=== PATIENT | female | born 1950 | race Caucasian/White ===

== ENCOUNTER 2017-01-10 07:15 | Day surgery (SDC) | payer MEDICARE, BC ==
[2017-01-10] MEDS ORDERED: fentaNYL 100 MCG/2 ML SDV ONE (07:20)
[2017-01-10] MEDS ORDERED: Midazolam 1 MG/ML 2 ML SDV ONE (07:20)
[2017-01-10] MEDS ORDERED: Propofol 200 MG/20 ML SDV ONE (07:20)
[2017-01-10] MEDS ORDERED: Dextrose 5%-Lactated Ringers 1,000 ML IV SCH (08:15)
[2017-01-10] MEDS ORDERED: Glycopyrrolate 0.2 MG/ML 2 ML SDV IVPUSH ONE (08:30)
[2017-01-10 11:20] VITALS: BP 137/89
--- NOTE | 2017-01-16 14:54 | OR ---
DATE OF PROCEDURE: 01/10/2017 PREOPERATIVE DIAGNOSIS: History of multiple gastric polyps. POSTOPERATIVE DIAGNOSES: 1. Persistent multiple gastric polyps. 2. Mild antral gastritis and duodenitis. OPERATIVE PROCEDURES: Esophagogastroduodenoscopy with: 1. Biopsies of antrum for CLOtest (14564). 2. Gastric polypectomy by snare technique (80286). ANESTHESIA: IV sedation. INDICATION FOR PROCEDURE: This 66-year-old was noted to previously have a multitude of gastric polyps. These had been found to be benign previously and likely related to long- term proton pump inhibitor use. Presently, she is trying to minimize the use of proton pump inhibitors and is using more [id number] type medications, such as oral antacids. The plan is to proceed with upper GI endoscopy with biopsies and/or polypectomies as indicated. Potential risks including bleeding and perforation were discussed, and the patient wishes to proceed. DETAILS OF PROCEDURE: The patient was taken to the operating room and placed in a left lateral decubitus position. IV sedation was administered, after which the upper GI endoscope was passed orally through the length of the esophagus and into the stomach with retroflexion view of the fundus, and thereafter through the pyloric channel and into the junction of the third and fourth portions of the duodenum. Findings included normal hypopharynx, larynx, upper esophageal sphincter, and esophageal body. The esophagogastric junction showed minimal hiatal hernia, but there was no gross inflammation, i.e. whatever medical regimen she is on is certainly controlling any reflux esophagitis satisfactorily. Within the stomach, there was a multitude of gastric polyps. These were predominantly in the gastric body. None were present in the antrum and only a scattered few in the cardia and fundus. These were numerous, at least 150 to 200 small polyps were present. There was some mild redness in the antrum and proximal duodenum consistent with mild antral gastritis and duodenitis, and beyond the duodenal bulb, the duodenal findings normalized. At this point, biopsies were obtained from the antrum and sent for CLOtest for H. pylori. A grouping of polyps, which included 3 polyps of various size and colors, was then encircled with the snare and cauterized at the base. These were then retrieved as a group, these being from the midbody of the stomach. Hemostasis appeared to be satisfactory at this point, the scope was then withdrawn, and the procedure was then concluded. The patient was taken to the recovery room in a satisfactory condition. Assuming that today's polyps are benign, I would recommend a repeat endoscopy in about 2 years, given the multitude of polyps that were seen, and she should continue the present medical regimen, attempting to minimize the use of proton pump inhibitors. Hammad Altman MD /[id number]
== END 2017-01-10 11:33 | disposition home or self-care (01) ==
LOC: JP.SDS 07:15
PROVIDERS: ATTEND Surgery
DX: Z12.11 Encounter for screening for malignant neoplasm of colon (principal); K31.7 Polyp of stomach and duodenum; K29.50 Unspecified chronic gastritis without bleeding; K44.9 Diaphragmatic hernia without obstruction or gangrene; Z86.010 Personal history of colon polyps; K29.80 Duodenitis without bleeding
CPT/HCPCS: 43239; 43251; 87081; J2250; J2704; J3010; J7042; 88305; J3490

== ENCOUNTER 2019-10-10 12:24 | Emergency (ER) | payer MEDICARE, BC ==
[2019-10-10 12:59] VITALS: BP 154/86; PULSE 66
--- NOTE | 2019-10-10 13:19 | EDM.PDOC ---
ED HPI GENERAL MEDICAL PROBLEM - General Chief Complaint: Bite:Animal, Insect Stated Complaint: TICK BITE Time Seen by Provider: 10/10/19 13:13 Source of Information: Reports: Patient, RN Notes Reviewed History Limitations: Reports: No Limitations - History of Present Illness INITIAL COMMENTS - FREE TEXT/NARRATIVE: 68-year-old female presents emergency department a complaint of tick bite to the abdomen she believes it was a wood tick bite happened a couple days ago - Related Data Allergies Allergy/AdvReac Type Severity Reaction Status Date / Time No Known Allergies Allergy Verified 10/10/19 13:05 Home Meds: Home Meds Levothyroxine [Synthroid] 75 mcg PO ACBREAKFAST 12/21/15 [History] Albuterol [IJD: Ventolin HFA] 2 inh INH QID PRN 01/08/17 [History] Cetirizine [ZyrTEC] 10 mg PO DAILY 01/10/17 [History] Past Medical History Respiratory History: Reports: Bronchitis, Recurrent Gastrointestinal History: Reports: Colon Polyp, Diverticulosis, GERD, Other (See Below) Other Gastrointestinal History: gastric polyps Genitourinary History: Reports: UTI, Recurrent 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 History: severe dysplasia cervix Musculoskeletal History: Reports: Fracture, Other (See Below) Other Musculoskeletal History: right shoulder pain Endocrine/Metabolic History: Reports: Hypoparathyroidism Oncologic (Cancer) History: Reports: Basal Cell Carcinoma, Squamous Cell Carcinoma Dermatologic History: Reports: Other (See Below) Other Dermatologic History: history rash on waist - Infectious Disease History Infectious Disease History: Reports: Chicken Pox, Measles, Mumps - Past Surgical History Head Surgeries/Procedures: Reports: None HEENT Surgical History: Reports: Oral Surgery, Tonsillectomy Respiratory Surgical History: Reports: None GI Surgical History: Reports: Colonoscopy, EGD Female Surgical History: Reports: None Endocrine Surgical History: Reports: None Musculoskeletal Surgical History: Reports: None Oncologic Surgical History: Reports: None Dermatological Surgical History: Reports: Skin Biopsy Social & Family History - Family History Family Medical History: Noncontributory - Tobacco Use Smoking Status *Q: Never Smoker - Caffeine Use Caffeine Use: Reports: None - Recreational Drug Use Recreational Drug Use: No ED ROS GENERAL - Review of Systems Review Of Systems: See Below Constitutional: Reports: No Symptoms Skin: Reports: Rash ED EXAM, ANIMAL BITE - Physical Exam Exam: See Below Text/Narrative:: Examination of the abdomen I do appreciate a target type lesion there is redness around the initial insult some central clearing and then further redness consistent with erythema migrans concern for underlying Lyme disease Exam Limited By: No Limitations General Appearance: Alert, WD/WN, No Apparent Distress Course - Vital Signs Last Recorded V/S: Last Vital Signs Temp 94.6 F L 10/10/19 12:58 Pulse 66 10/10/19 12:58 Resp 19 10/10/19 12:58 BP 154/86 H 10/10/19 12:58 Pulse Ox 95 10/10/19 12:58 Departure - Departure Time of Disposition: 13:19 Disposition: Home, Self-Care 01 Condition: Fair Clinical Impression: Lyme disease - Discharge Information Instructions: Lyme Disease, Tick Bite Information, Adult Referrals: Bailey Leung PA [Primary Care Provider] - Additional Instructions: Take full course of antibiotics, please followup with your primary care provider in 5-7 days if not better, please call return to the emergency department with worsening of symptoms. Sepsis Event Note (ED) - Evaluation Sepsis Screening Result: No Definite Risk - Focused Exam Vital Signs: Vital Signs Temp Pulse Resp BP Pulse Ox 10/10/19 12:58 94.6 F L 66 19 154/86 H 95 - Assessment/Plan Plan: Assessment Acuity = acute Site and laterality = erythema migrans concern for underlying Lyme disease Etiology = Ixodes scapularis Manifestations = none Location of injury = Home Lab values = none Plan Elected to treat empirically doxycycline 100 mg p.o. twice daily x14 days follow-up primary care in 5 to 7 days if no improvement This note was dictated using [employer] voice recognition software please call with any questions on syntax or grammar.
== END 2019-10-10 13:26 | disposition home or self-care (01) ==
LOC: JP.ED 12:24
DX: A69.20 Lyme disease, unspecified (principal); E20.9 Hypoparathyroidism, unspecified; Z79.899 Other long term (current) drug therapy
CPT/HCPCS: 99282

== ENCOUNTER 2020-11-23 15:24 | Emergency (ER) | payer MEDICARE, BC ==
[2020-11-23 16:37] VITALS: BP 189/79; PULSE 57
--- NOTE | 2020-11-23 17:06 | EDM.PDOC ---
ED HPI GENERAL MEDICAL PROBLEM - General Chief Complaint: Chest Pain Stated Complaint: POSSIBLE ALLERGIC REACTION Time Seen by Provider: 11/23/20 16:45 Source of Information: Reports: Patient, Family History Limitations: Reports: No Limitations - History of Present Illness INITIAL COMMENTS - FREE TEXT/NARRATIVE: 70-year-old female who 2-1/2 hours ago developed a substernal ache that progressed into a sharp pain that radiated up into her neck and jaw. There was no other symptoms such as shortness of breath, diaphoresis, nausea vomiting, pleuritic pain. It was not related to activity, she was sitting during this time. It persisted for over an hour and 1/2 to 2 hours so she thought she would come in and get it checked but it is improving now. There is just a dull ache in her neck, she thought it was an allergic reaction to some cream that she had used because she has had similar symptoms in the past with allergic reactions. She has no cardiac history. She took 2 aspirin. Onset: Sudden Duration: Hour(s): (Just over 2 hours ago) Location: Reports: Neck, Chest, Other (Jaw bilaterally) Quality: Reports: Ache Improves with: Reports: None Worsens with: Reports: None Associated Symptoms: Reports: Other (She feels very anxious and shaky) Chest Pain Score (Numeric/FACES): 3 - Related Data Allergies Allergy/AdvReac Type Severity Reaction Status Date / Time No Known Allergies Allergy Verified 11/23/20 16:36 Home Meds: Home Meds Levothyroxine [Synthroid] 75 mcg PO ACBREAKFAST 12/21/15 [History] Albuterol [IJD: Ventolin HFA] 2 inh INH QID PRN 01/08/17 [History] Cetirizine [ZyrTEC] 10 mg PO ASDIRECTED PRN 01/10/17 [History] Serovital 1 cap PO DAILY 11/23/20 [History] Past Medical History HEENT History: Reports: None Cardiovascular History: Reports: None Respiratory History: Reports: Bronchitis, Recurrent Gastrointestinal History: Reports: Colon Polyp, Diverticulosis, GERD, Other (See Below) Other Gastrointestinal History: gastric polyps Genitourinary History: Reports: UTI, Recurrent 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 History: severe dysplasia cervix Musculoskeletal History: Reports: Fracture, Other (See Below) Other Musculoskeletal History: right shoulder pain Neurological History: Reports: None Psychiatric History: Reports: None Endocrine/Metabolic History: Reports: Hypoparathyroidism, Obesity/BMI 30+ Hematologic History: Reports: None Immunologic History: Reports: None Oncologic (Cancer) History: Reports: Basal Cell Carcinoma, Squamous Cell Carcinoma Dermatologic History: Reports: Other (See Below) Other Dermatologic History: history rash on waist - Infectious Disease History Infectious Disease History: Reports: Chicken Pox, Measles, Mumps, Novel Coronavirus - Past Surgical History Head Surgeries/Procedures: Reports: None HEENT Surgical History: Reports: Oral Surgery, Tonsillectomy Respiratory Surgical History: Reports: None GI Surgical History: Reports: Colonoscopy, EGD Female Surgical History: Reports: None Other Female Surgeries/Procedures: cone biopsy cyro surgury Endocrine Surgical History: Reports: None Musculoskeletal Surgical History: Reports: None Oncologic Surgical History: Reports: None Dermatological Surgical History: Reports: Skin Biopsy Social & Family History - Family History Family Medical History: No Pertinent Family History - Tobacco Use Tobacco Use Status *Q: Former Tobacco User Used Tobacco, but Quit: Yes Month/Year Tobacco Last Used: 1979 - Caffeine Use Caffeine Use: Reports: Coffee - Recreational Drug Use Recreational Drug Use: No ED ROS GENERAL - Review of Systems Review Of Systems: See Below Constitutional: Reports: Malaise. Denies: Fever, Chills HEENT: Reports: Other (Jaw pain, fullness in throat but no edema. Her voice is somewhat "hoarse".) Respiratory: Denies: Shortness of Breath, Pleuritic Chest Pain, Cough Cardiovascular: Reports: Chest Pain. Denies: Palpitations GI/Abdominal: Denies: Abdominal Pain, Nausea, Vomiting : Reports: No Symptoms Musculoskeletal: Reports: Neck Pain Skin: Reports: No Symptoms Neurological: Denies: Dizziness, Headache, Syncope, Weakness Psychiatric: Reports: Anxiety ED EXAM, GENERAL - Physical Exam Exam: See Below Exam Limited By: No Limitations General Appearance: Alert, No Apparent Distress, Anxious Eye Exam: Bilateral Eye: Normal Inspection Throat/Mouth: Other (Tonsils are absent, no mucosal edema or abnormalities) Head: Atraumatic Neck: Supple, Non-Tender Respiratory/Chest: Lungs Clear Cardiovascular: Regular Rate, Rhythm. No: Tachycardia, Extra Beats GI/Abdominal: Soft, Non-Tender Back Exam: Normal Inspection Extremities: Normal Inspection. No: Pedal Edema Neurological: Alert, Oriented, No Motor/Sensory Deficits Psychiatric: Anxious Skin Exam: Warm, Dry #1 Interpretation EKG Date: 11/23/20 Rhythm: NSR QRS: Normal ST-T: Normal EKG Interpretation Comments: Somewhat early R wave progression no acute findings Course - Vital Signs Last Recorded V/S: Last Vital Signs Temp 97.3 F 11/23/20 16:40 Pulse 57 L 11/23/20 16:40 Resp 18 11/23/20 16:40 BP 189/79 H 11/23/20 16:40 Pulse Ox 98 11/23/20 16:40 - Orders/Labs/Meds Labs: Laboratory Tests 11/23/20 11/23/20 Range/Units 17:05 17:05 WBC 8.3 (4.5-11.0) K/uL RBC 4.51 (3.30-5.50) M/uL Hgb 13.2 (12.0-15.0) g/dL Hct 40.7 (36.0-48.0) % MCV 90 (80-98) fL MCH 29 (27-31) pg MCHC 32 (32-36) % Plt Count 303 (150-400) K/uL Neut % (Auto) 57.8 (36-66) % Lymph % (Auto) 25.8 (24-44) % [place] % (Auto) 9.6 H (2-6) % Eos % (Auto) 6.6 H (2-4) % Baso % (Auto) 0.2 (0-1) % Sodium 140 (140-148) mmol/L Potassium 4.1 (3.6-5.2) mmol/L Chloride 101 (100-108) mmol/L Carbon Dioxide 28 (21-32) mmol/L Anion Gap 10.8 (5.0-14.0) mmol/L BUN 16 (7-18) mg/dL Creatinine 1.0 (0.6-1.0) mg/dL Est Cr Clr Drug Dosing 46.15 mL/min Estimated GFR (MDRD) 55 L (>60) Glucose 99 (74-106) mg/dL Calcium 9.2 (8.5-10.1) mg/dL Total Bilirubin 0.6 (0.2-1.0) mg/dL AST 24 (15-37) U/L ALT 31 (12-78) U/L Alkaline Phosphatase 63 (46-116) U/L Troponin I < 0.017 (0.000-0.056) ng/mL Total Protein 6.5 (6.4-8.2) g/dL Albumin 3.4 (3.4-5.0) g/dL Globulin 3.1 (2.3-3.5) g/dL Albumin/Globulin Ratio 1.1 L (1.2-2.2) - Re-Assessments/Exams Free Text/Narrative Re-Assessment/Exam: 11/23/20 17:05 EKG was reassuring, vitals are normal. This acts more like esophageal spasm or GI symptoms rather than cardiac. CBC, CMP, troponin were obtained and are pending. Any remaining symptoms are so subtle, further treatment is not necessary at this time. Troponin is 0, symptoms have resolved and not returned. Suggested repeat trop in 2-3 hours but patient asked to be discharged. I don't feel this is a cardiac source of pain so she will be discharged and will return if sx return. Departure - Departure Time of Disposition: 17:53 Disposition: Home, Self-Care 01 Clinical Impression: Atypical chest pain - Discharge Information Instructions: Chest Wall Pain, [id number] Referrals: Bailey Leung PA [Primary Care Provider] - Forms: ED Department Discharge Care Plan Goals: Continue your current medications, try a bland diet for the next few days and i ncrease activity as tolerated. Return anytime if pain recurs and is persistent or you develop other concerns. Sepsis Event Note (ED) - Evaluation Sepsis Screening Result: No Definite Risk
== END 2020-11-23 18:03 | disposition home or self-care (01) ==
LOC: JP.ED 15:24
DX: R07.89 Other chest pain (principal); E03.9 Hypothyroidism, unspecified; E66.9 Obesity, unspecified; Z68.30 Body mass index [BMI] 30.0-30.9, adult; Z87.891 Personal history of nicotine dependence; Z79.899 Other long term (current) drug therapy
CPT/HCPCS: 36415; 80053; 84484; 85025; 93005; 99285-25

== ENCOUNTER 2021-05-01 06:30 | Day surgery (SDC) | payer MEDICARE, BC ==
[2021-05-01] MEDS ORDERED: Sodium Chloride 0.9% 1,000 ML IV SCH (07:00)
[2021-05-01] MEDS ORDERED: Propofol 200 MG/20 ML SDV ONE (07:42)
[2021-05-01] MEDS ORDERED: fentaNYL 100 MCG/2 ML SDV ONE (07:42)
[2021-05-01] MEDS ORDERED: Midazolam 1 MG/ML 2 ML SDV ONE (07:42)
[2021-05-01 08:58] VITALS: BP 143/89; PULSE 57
== END 2021-05-01 09:39 | disposition home or self-care (01) ==
LOC: JP.SDS 06:30
PROVIDERS: ATTEND Surgery
DX: Z12.11 Encounter for screening for malignant neoplasm of colon (principal); D12.2 Benign neoplasm of ascending colon; D12.3 Benign neoplasm of transverse colon; K31.7 Polyp of stomach and duodenum; K21.9 Gastro-esophageal reflux disease without esophagitis; E03.9 Hypothyroidism, unspecified
CPT/HCPCS: J2250; J2704; J3010; J7030

== ENCOUNTER 2023-01-25 06:49 | Day surgery (SDC) | payer MEDICARE, BC ==
[2023-01-25] MEDS ORDERED: Propofol 200 MG/20 ML SDV ONE ×2 (07:18→08:51)
[2023-01-25] MEDS ORDERED: fentaNYL 100 MCG/2 ML SDV ONE (07:18)
[2023-01-25] MEDS ORDERED: Lactated Ringers 1,000 ML IV SCH (08:00)
[2023-01-25 09:39] VITALS: PULSE 52
[2023-01-25 09:49] VITALS: BP 154/64
== END 2023-01-25 10:09 | disposition home or self-care (01) ==
LOC: JP.SDS 06:49
PROVIDERS: ATTEND Student in an Organized Health Care Education/Training Program
DX: Z12.11 Encounter for screening for malignant neoplasm of colon (principal); K29.50 Unspecified chronic gastritis without bleeding; K63.5 Polyp of colon; K52.9 Noninfective gastroenteritis and colitis, unspecified; K57.30 Diverticulosis of large intestine without perforation or abscess without bleeding; K31.7 Polyp of stomach and duodenum; K21.9 Gastro-esophageal reflux disease without esophagitis; E78.00 Pure hypercholesterolemia, unspecified; E03.9 Hypothyroidism, unspecified; Z85.828 Personal history of other malignant neoplasm of skin
CPT/HCPCS: 43239; 45380; 88305; J2704; J3010; J7120

== ENCOUNTER 2023-09-29 10:41 | Emergency (ER) | payer MEDICARE, BC ==
[2023-09-29] MEDS: Sodium Chloride 0.9% 10 ML Syringe FLUSH PRN (11:46)
[2023-09-29] MEDS: Sodium Chloride 0.9% 1,000 ML IV ONE (11:46)
[2023-09-29 11:49] LABS: HEMOGLOBIN 12.4 g/dL (11.2-15.5); MEAN CORPUSCULAR HEMOGLOBIN 29.7 pg (31.6-35.5); MEAN CORPUSCULAR HGB CONC 35.4 g/dL (31.6-35.5); MEAN CORPUSCULAR VOLUME 83.9 fL (81.4-99.0); PLATELET COUNT,PLT 128 K/uL (130-375); RED BLOOD CELL COUNT 4.17 M/uL (3.77-5.24); WHITE BLOOD CELL COUNT,WBC 10.1 K/uL (3.2-11.0)
[2023-09-29 12:06] LABS: BASOPHILS PERCENT MAN 1 % (0-1); EOSINOPHILS ABSOLUTE MAN 0.51 K/uL (0.00-0.40); EOSINOPHILS PERCENT MAN 5 % (2-4); LYMPHOCYTES ABSOLUTE MAN 1.52 K/uL (0.8-3.3); LYMPHOCYTES PERCENT MAN 15 % (24-44); MONOCYTES ABSOLUTE MAN 0.61 K/uL (0.20-0.90); MONOCYTES PERCENT MAN 6 % (2-6); NEUTROPHILS ABSOLUTE MAN 7.37 K/uL (1.0-7.6); SEG NEUTROPHILS PERCENT MAN 73 % (36-66)
[2023-09-29 12:09] LABS: A/G RATIO 0.8 (1.2-2.2); ALANINE AMINOTRANSFERASE,ALT 55 U/L (12-78); ALBUMIN 2.8 g/dL (3.4-5.0); ALKALINE PHOSPHATASE 100 U/L (46-116); ASPARTATE AMNIOTRANSFERASE,AST 23 U/L (15-37); BILIRUBIN TOTAL 0.9 mg/dL (0.2-1.0); BLOOD UREA NITROGEN,BUN 10 mg/dL (7-18); CARBON DIOXIDE,CO2 26 mmol/L (21-32); CHLORIDE,CL 98 mmol/L (100-108); CREATININE 0.8 mg/dL (0.6-1.0); EST CRCL DRUG DOSING (CG) 54.89 mL/min; ESTIMATED GFR 78 mL/min (>60); GLUCOSE RANDOM 120 mg/dL (74-106); POTASSIUM,K 3.2 mmol/L (3.6-5.2); PROTEIN TOTAL,TP 6.2 g/dL (6.4-8.2); SODIUM,NA 133 mmol/L (140-148)
[2023-09-29 12:11] LABS: ANION GAP 12.2 mmol/L (5.0-14.0)
[2023-09-29] MEDS: Potassium Chloride 20 MEQ Tab.ER PO ONE (12:25)
[2023-09-29] MEDS: Potassium Chloride 10 MEQ in Premix Bag 1 BAG IV ONE ×2 (12:25→13:38)
[2023-09-29 13:39] VITALS: BP 128/79; PULSE 68
[2023-09-29] MEDS: Sodium Chloride 0.9% 1,000 ML IV SCH (14:15)
== END 2023-09-29 14:48 | disposition home or self-care (01) ==
LOC: JP.ED 10:41
DX: E87.6 Hypokalemia (principal); R19.7 Diarrhea, unspecified; E03.9 Hypothyroidism, unspecified; Z79.51 Long term (current) use of inhaled steroids; Z79.899 Other long term (current) drug therapy; Z79.890 Hormone replacement therapy; Z86.16 Personal history of COVID-19
CPT/HCPCS: 36415; 80053; 83735; 85025; 87493; 96361; 96365; 96366; 99284; A9270; J3480; J3490; J7030

== ENCOUNTER 2023-10-08 12:43 | Inpatient (IN) | payer MEDICARE, BC ==
[2023-10-08] MEDS ORDERED: Ondansetron 4 MG/2 ML SDV IV PRN (13:18)
[2023-10-08] MEDS ORDERED: Naloxone 0.4 MG/ML SDV IVPUSH PRN (13:32)
[2023-10-08] MEDS: Sodium Chloride 0.9% 1,000 ML IV SCH ×2 (14:00→17:51)
[2023-10-08] MEDS ORDERED: fentaNYL 250 MCG/5 ML SDV ONE (14:04)
[2023-10-08] MEDS ORDERED: Neostigmine Methylsulfate 10 MG/10 ML MDV ONE (14:05)
[2023-10-08] MEDS ORDERED: Succinylcholine 200 MG/10 ML MDV ONE (14:05)
[2023-10-08] MEDS ORDERED: Propofol 200 MG/20 ML SDV ONE (14:05)
[2023-10-08] MEDS ORDERED: Dexamethasone 4 MG/ML SDV ONE (14:05)
[2023-10-08] MEDS ORDERED: Ondansetron 4 MG/2 ML SDV ONE (14:05)
[2023-10-08] MEDS ORDERED: Glycopyrrolate 0.2 MG/ML 5 ML MDV ONE (14:05)
[2023-10-08] MEDS ORDERED: Rocuronium 50 MG/5 ML Vial ONE (14:05)
[2023-10-08] MEDS: Potassium Chloride 20 MEQ Tab.ER PO ONE (14:24)
[2023-10-08] MEDS: Potassium Chloride 10 MEQ in Premix Bag 1 BAG IV SCH (14:30)
[2023-10-08] MEDS: ceFAZolin 2 GM in Premix Bag 1 BAG IV ONE (15:00)
[2023-10-08] MEDS: Bupivacaine 0.5%/EPINEPHrine 1:200,000 50 ML MDV ONE (15:25)
[2023-10-08] MEDS: metroNIDAZOLE/Normal Saline 500 MG in Premix Bag 1 BAG IV SCH (15:30)
[2023-10-08] MEDS: Ropivacaine 34 ML, dexAMETHasone 8 MG, EPINEPHrine 0.4 MG, Sodium Chloride 0.9% 43.6 ML NERVRT SCH (15:50)
[2023-10-08] MEDS ORDERED: fentaNYL 100 MCG/2 ML SDV ONE ×2 (16:08→16:16)
[2023-10-08] MEDS ORDERED: Labetalol 20 MG/4 ML Syringe ONE (16:24)
[2023-10-08] MEDS: Albuterol/Ipratropium 3.0-0.5 MG/3 ML Neb Soln NEB ONE (17:39)
[2023-10-08] MEDS: Ciprofloxacin in D5W 400 MG in Premix Bag 1 BAG IV SCH (17:42)
[2023-10-08] MEDS: HYDROmorphone 0.5 MG/0.5 ML Syringe IVPUSH PRN (18:33)
[2023-10-09 04:58] LABS: HEMATOCRIT 33.4 % (34.3-46.0); HEMOGLOBIN 11.4 g/dL (11.2-15.5); MEAN CORPUSCULAR HEMOGLOBIN 29.2 pg (31.6-35.5); MEAN CORPUSCULAR HGB CONC 34.1 g/dL (31.6-35.5); MEAN CORPUSCULAR VOLUME 85.6 fL (81.4-99.0); RED BLOOD CELL COUNT 3.9 M/uL (3.77-5.24)
[2023-10-09 05:18] LABS: WHITE BLOOD CELL COUNT,WBC 31.2 K/uL (3.2-11.0)
[2023-10-09 05:22] LABS: A/G RATIO 0.4 (1.2-2.2); ALANINE AMINOTRANSFERASE,ALT 23 U/L (12-78); ALBUMIN 1.4 g/dL (3.4-5.0); ALKALINE PHOSPHATASE 100 U/L (46-116); ASPARTATE AMNIOTRANSFERASE,AST 29 U/L (15-37); BILIRUBIN TOTAL 0.4 mg/dL (0.2-1.0); BLOOD UREA NITROGEN,BUN 9 mg/dL (7-18); CALCIUM 7.7 mg/dL (8.5-10.1); CARBON DIOXIDE,CO2 24 mmol/L (21-32); CHLORIDE,CL 98 mmol/L (100-108); EST CRCL DRUG DOSING (CG) 43.91 mL/min; ESTIMATED GFR 60 mL/min (>60); GLUCOSE RANDOM 208 mg/dL (74-106); MAGNESIUM 1.4 mg/dL (1.8-2.4); PROTEIN TOTAL,TP 4.6 g/dL (6.4-8.2); SODIUM,NA 133 mmol/L (140-148)
[2023-10-09] MEDS ORDERED: Meropenem 1 GM in Sodium Chloride 0.9% 100 ML IV SCH (05:45)
[2023-10-09] MEDS: Iopamidol 612 MG/ML 100 ML Bottle IV STA (06:10)
[2023-10-09] MEDS: Sodium Chloride 0.9% 80 ML IV STA (06:10)
[2023-10-09] MEDS: Meropenem 1 GM in Sodium Chloride 0.9% 100 ML IV ONE (06:33)
[2023-10-09] MEDS: Sodium Chloride 0.9% 500 ML IV ONE (07:41)
[2023-10-09] MEDS ORDERED: hydrOXYzine HCL 100 MG/2 ML SDV IM PRN (08:05)
[2023-10-09] MEDS ORDERED: Acetaminophen/HYDROcodone 325-5 MG Tab PO PRN (08:09)
[2023-10-09] MEDS: Lidocaine 4% Top Soln 50 ML Bottle MUCMEM ONE (08:49)
[2023-10-09] MEDS: Magnesium Sulfate/Water 2 GM in Premix Bag 1 BAG IV SCH (08:54)
[2023-10-09] MEDS: Acetaminophen/HYDROcodone 325-5 MG Tab PO PRN (08:54)
[2023-10-09] MEDS: Enoxaparin 40 MG/0.4 ML Syringe SUBCUT SCH (08:54)
[2023-10-09] MEDS: Meropenem 1 GM in Sodium Chloride 0.9% 100 ML IV SCH (17:52)
[2023-10-10 05:06] LABS: HEMATOCRIT 28.3 % (34.3-46.0); HEMOGLOBIN 9.6 g/dL (11.2-15.5); MEAN CORPUSCULAR HEMOGLOBIN 29.2 pg (31.6-35.5); MEAN CORPUSCULAR HGB CONC 33.9 g/dL (31.6-35.5); PLATELET COUNT,PLT 144 K/uL (130-375); RED BLOOD CELL COUNT 3.29 M/uL (3.77-5.24)
[2023-10-10 05:32] LABS: A/G RATIO 0.4 (1.2-2.2); ALANINE AMINOTRANSFERASE,ALT 15 U/L (12-78); ALBUMIN 1.3 g/dL (3.4-5.0); ALKALINE PHOSPHATASE 114 U/L (46-116); ASPARTATE AMNIOTRANSFERASE,AST 20 U/L (15-37); BILIRUBIN TOTAL 0.3 mg/dL (0.2-1.0); BLOOD UREA NITROGEN,BUN 11 mg/dL (7-18); CALCIUM 7.5 mg/dL (8.5-10.1); CARBON DIOXIDE,CO2 24 mmol/L (21-32); CHLORIDE,CL 103 mmol/L (100-108); CREATININE 0.7 mg/dL (0.6-1.0); EST CRCL DRUG DOSING (CG) 62.73 mL/min; ESTIMATED GFR 92 mL/min (>60); GLUCOSE RANDOM 122 mg/dL (74-106); POTASSIUM,K 3.6 mmol/L (3.6-5.2); PROTEIN TOTAL,TP 4.4 g/dL (6.4-8.2); SODIUM,NA 134 mmol/L (140-148)
[2023-10-10 05:41] LABS: WHITE BLOOD CELL COUNT,WBC 31.5 K/uL (3.2-11.0)
[2023-10-10 05:42] LABS: ANION GAP 10.6 mmol/L (5.0-14.0); BAND ABSOLUTE MAN 2.52 K/uL; BAND PERCENT MAN 8 % (5-11); LYMPHOCYTES ABSOLUTE MAN 1.89 K/uL (0.8-3.3); LYMPHOCYTES PERCENT MAN 6 % (24-44); METAMYELOCYTE ABSOLUTE MAN 0.63 K/uL; METAMYELOCYTE PERCENT MAN 2 %; MONOCYTES ABSOLUTE MAN 1.58 K/uL (0.20-0.90); MONOCYTES PERCENT MAN 5 % (2-6); MYELOCYTE ABSOLUTE MAN 0.63; MYELOCYTE PERCENT MAN 2 %; NEUTROPHILS ABSOLUTE MAN 24.26 K/uL (1.0-7.6); SEG NEUTROPHILS PERCENT MAN 77 % (36-66)
[2023-10-10] MEDS: Meropenem 1 GM in Sodium Chloride 0.9% 100 ML IV SCH (13:43)
[2023-10-10] MEDS: Potassium Chloride 20 MEQ Tab.ER PO ONE (17:51)
[2023-10-10] MEDS: Levothyroxine 88 MCG Tab PO SCH (18:22)
[2023-10-10] MEDS: Pantoprazole 40 MG Tab.CR PO SCH (21:37)
[2023-10-10] MEDS: Sodium Chloride 0.9% 1,000 ML IV SCH (21:46)
[2023-10-11 04:16] LABS: NEUTROPHILS ABSOLUTE AUTO 24.78 K/uL (1.0-7.6)
[2023-10-11 04:30] LABS: CALCIUM 7.5 mg/dL (8.5-10.1); CREATININE 0.6 mg/dL (0.6-1.0); EST CRCL DRUG DOSING (CG) 73.19 mL/min; POTASSIUM,K 3.9 mmol/L (3.6-5.2)
[2023-10-11 05:11] LABS: ANION GAP 9.9 mmol/L (5.0-14.0)
[2023-10-11 05:17] LABS: WHITE BLOOD CELL COUNT,WBC 31.1 K/uL (3.2-11.0)
[2023-10-11] MEDS: Levothyroxine 88 MCG Tab PO SCH (07:11)
[2023-10-11] MEDS: Cetirizine 10 MG Tab PO SCH (09:33)
[2023-10-11] MEDS: Lactobacillus Rhamnosus GG (Probiotic) Cap PO SCH (09:35)
[2023-10-11] MEDS: Magnesium Hydroxide 400 MG/5 ML Susp 30 ML Cup PO ONE (09:35)
[2023-10-12 05:37] LABS: NEUTROPHILS ABSOLUTE AUTO 16.46 K/uL (1.0-7.6); WHITE BLOOD CELL COUNT,WBC 23.8 K/uL (3.2-11.0)
[2023-10-12 06:00] LABS: CREATININE 0.6 mg/dL (0.6-1.0); EST CRCL DRUG DOSING (CG) 73.19 mL/min; VANCOMYCIN RANDOM 9.1 ug/mL (0.0-50.0)
[2023-10-12] MEDS: Magnesium Hydroxide 400 MG/5 ML Susp 30 ML Cup PO ONE (12:40)
[2023-10-12] MEDS: Mineral Oil/Petrolatum/Phenylephrine/Shark Liver Oil Oint 57 GM Tube RECTAL PRN (15:04)
[2023-10-13 05:48] LABS: NEUTROPHILS ABSOLUTE AUTO 17.87 K/uL (1.0-7.6); WHITE BLOOD CELL COUNT,WBC 26.3 K/uL (3.2-11.0)
[2023-10-13 11:29] VITALS: BP 145/75; PULSE 88
== END 2023-10-13 15:00 | DRG 336 ==
LOC: JP.MS 12:43
PROVIDERS: ADMIT Hospitalist; ATTEND Hospitalist
PROC: 0DN80ZZ Release Small Intestine, Open Approach (ICD-10-PCS; 2023-10-08)
PROC: 0DNA0ZZ Release Jejunum, Open Approach (ICD-10-PCS; principal; 2023-10-08 14:00)
DX: K56.609 Unspecified intestinal obstruction, unspecified as to partial versus complete obstruction (principal); C25.9 Malignant neoplasm of pancreas, unspecified; E03.9 Hypothyroidism, unspecified; E66.9 Obesity, unspecified; F41.0 Panic disorder [episodic paroxysmal anxiety]; K21.9 Gastro-esophageal reflux disease without esophagitis; E87.6 Hypokalemia; E83.42 Hypomagnesemia; Z90.89 Acquired absence of other organs; Z86.16 Personal history of COVID-19; Z98.49 Cataract extraction status, unspecified eye; Z86.010 Personal history of colon polyps; Z87.440 Personal history of urinary (tract) infections; Z87.891 Personal history of nicotine dependence; Z68.28 Body mass index [BMI] 28.0-28.9, adult
CPT/HCPCS: 36415; 74177; 74177-26; 80048; 80053; 80202; 82565; 83605; 83735; 84145; 85025; 85027; 85048; 87040; 87070; 87075; 87077; 87186; 87205; 94640; 99222; 99232; 99238; A9270-GY; J0171; J0330; J0690; J0744; J1100; J1170; J1596; J1650; J1836; J1920; J2185; J2405; J2704; J2710; J2795; J3010; J3370; J3475; J3480; J3490; J7030; J7040; J7050; J7620; Q9967

== ENCOUNTER 2023-12-09 14:17 | Emergency (ER) | payer MEDICARE, BC ==
[2023-12-09 16:50] LABS: BASOPHILS PERCENT AUTO 0.6 % (0.1-1.3); EOSINOPHILS PERCENT AUTO 1.2 % (0.0-5.4); HEMATOCRIT 33.8 % (34.3-46.0); HEMOGLOBIN 11.2 g/dL (11.2-15.5); IMMATURE GRAN ABSOLUTE AUTO 0.52 K/uL (0.00-0.23); IMMATURE GRAN PERCENT AUTO 3.2 % (0.0-0.7); LYMPHOCYTES ABSOLUTE AUTO 2.78 K/uL (0.8-3.3); LYMPHOCYTES PERCENT AUTO 17.1 % (11.4-47.7); MEAN CORPUSCULAR HEMOGLOBIN 28.1 pg (31.6-35.5); MEAN CORPUSCULAR HGB CONC 33.1 g/dL (31.6-35.5); MEAN CORPUSCULAR VOLUME 84.7 fL (81.4-99.0); MONOCYTES ABSOLUTE AUTO 0.34 K/uL (0.20-0.90); MONOCYTES PERCENT AUTO 2.1 % (3.3-12.6); NEUTROPHILS ABSOLUTE AUTO 12.32 K/uL (1.0-7.6); NEUTROPHILS PERCENT AUTO 75.8 % (40.0-78.1); PLATELET COUNT,PLT 223 K/uL (130-375); RED BLOOD CELL COUNT 3.99 M/uL (3.77-5.24); WHITE BLOOD CELL COUNT,WBC 16.3 K/uL (3.2-11.0)
[2023-12-09] MEDS: Sodium Chloride 0.9% 10 ML Syringe FLUSH PRN ×2 (16:59→18:16)
[2023-12-09] MEDS: Sodium Chloride 0.9% 1,000 ML IV ONE (16:59)
[2023-12-09 17:11] LABS: ALANINE AMINOTRANSFERASE,ALT 21 U/L (12-78); ALBUMIN 3.4 g/dL (3.4-5.0); ALKALINE PHOSPHATASE 144 U/L (46-116); ASPARTATE AMNIOTRANSFERASE,AST 16 U/L (15-37); BILIRUBIN TOTAL 0.7 mg/dL (0.2-1.0); BLOOD UREA NITROGEN,BUN 12 mg/dL (7-18); C-REACTIVE PROTEIN 0.55 mg/dL (<0.50); CALCIUM 9.4 mg/dL (8.5-10.1); CARBON DIOXIDE,CO2 28 mmol/L (21-32); CHLORIDE,CL 98 mmol/L (100-108); CREATININE 0.8 mg/dL (0.6-1.0); EST CRCL DRUG DOSING (CG) 52.95 mL/min; ESTIMATED GFR 78 mL/min (>60); GLUCOSE RANDOM 114 mg/dL (74-106); POTASSIUM,K 3.9 mmol/L (3.6-5.2); PROTEIN TOTAL,TP 6.9 g/dL (6.4-8.2); SODIUM,NA 134 mmol/L (140-148)
[2023-12-09 17:12] LABS: ANION GAP 11.9 mmol/L (5.0-14.0)
[2023-12-09] MEDS: Sodium Chloride 0.9% 100 ML IV SCH (18:16)
[2023-12-09] MEDS: Iopamidol 612 MG/ML 100 ML Bottle IV SCH (18:16)
[2023-12-09 20:05] VITALS: BP 110/64; PULSE 69
== END 2023-12-09 20:00 | disposition home or self-care (01) ==
LOC: JP.ED 14:17
DX: R19.7 Diarrhea, unspecified (principal); K21.9 Gastro-esophageal reflux disease without esophagitis; E03.9 Hypothyroidism, unspecified; E66.9 Obesity, unspecified; Z79.899 Other long term (current) drug therapy; Z79.890 Hormone replacement therapy; Z68.24 Body mass index [BMI] 24.0-24.9, adult
CPT/HCPCS: 36415; 74177; 80053; 83605; 83690; 84145; 85025; 86140; 87040; 96360; 99284; J3490; J7030; Q9967

== ENCOUNTER 2023-12-17 07:58 | Day surgery (SDC) | payer MEDICARE, BC ==
[~2023-12-17 07:58] MED LIST: Propofol 200 MG/20 ML SDV ONE; fentaNYL 50 MCG/ML SDV ONE
[2023-12-17] MEDS: Sodium Chloride 0.9% 1,000 ML IV SCH (08:30)
[2023-12-17 11:18] VITALS: BP 145/66; PULSE 58
== END 2023-12-17 11:30 | disposition home or self-care (01) ==
LOC: JP.SDS 07:58
PROVIDERS: ATTEND Surgery
DX: Z12.11 Encounter for screening for malignant neoplasm of colon (principal); K57.30 Diverticulosis of large intestine without perforation or abscess without bleeding; K21.9 Gastro-esophageal reflux disease without esophagitis
CPT/HCPCS: G0121; J2704; J3010; J7030; 00811-QZ